=== PATIENT | male | born 1955 | race Caucasian/White ===

== ENCOUNTER → 2019-08-17 10:19 | Outpatient (BNVA) | payer OTHER, SELFPAY | PROVIDERS: Referring Provider Physician Assistant Medical; Visit Provider Orthopaedic Surgery | DX: M25.561 Pain in right knee (principal); M25.562 Pain in left knee | CPT/HCPCS: 73560; 73565 ==

== ENCOUNTER 2019-08-21 08:12 | Day surgery (SDC) | payer OTHER, SELFPAY ==
[2019-08-18 14:43] VITALS: BMI 27.5
[2019-08-21 08:37] VITALS: BP 139/91; PULSE 73; RESP 18; TEMP 36.2; O2SAT 95
[2019-08-21] MEDS: sodium chloride 0.9% 1,000 ML 30 ML IV (08:58)
--- NOTE | 2019-08-21 10:05 | ANES.PREANE2 ---
Pre-Anesthetic Assessment Pre-Anesthetic Assessment: Height/Weight: Height 1.91 m Weight 99.79 kg Temp Pulse Resp BP Pulse Ox 97.2 F L 73 18 139/91 95 08/21/19 08:37 08/21/19 08:37 08/21/19 08:37 08/21/19 08:37 08/21/19 08:37 Preop Diagnosis: Right medial meniscal tear Proposed Procedure: Operation Date: 08/21/19 10:30 Proposed Procedures p Right Knee Arthroscopy 45916 S83.206A(Right) - Andi Moise MD Last intake: Intake Last Liquid Date 08/20/19 Last Liquid Time 22:00 Last Solid Date 08/20/19 Last Solid Time 22:00 Exam: Pre-Anes Outpt Exam: alert, oriented x 3, clear to auscultation bilaterally and regular rate & rhythm Airway: Submandibular: WNL Cervical ROM: WNL MP: 1 Dentition: Caps Anesthetic Plan: ASA status: 2 Anesthesia: General Meds/Allergies Current Medications: Current Medications Generic Name Dose Route Start Last Admin Trade Name Freq PRN Reason Stop Dose Admin Sodium Chloride 1,000 mls @ 30 ml s/hr 08/21/19 08:45 08/21/19 08:58 Sodium Chloride 0.9% IV 08/22/19 08:44 30 mls/hr .Q24H MANDY Administration PFSH Anesthesia PFSH: Social History (Updated 08/17/19 @ 09:50 by Clovis Dodge LPN) Smoking and tobacco status: never smoked Alcohol intake: current Alcohol intake frequency: holidays/special occasions only Data Anesthesia Cardiac Studies: No Data to Display
--- NOTE | 2019-08-21 10:46 | W.PM.OPSUD ---
Surgery/Procedure H&P Update DATE OF PROCEDURE: August 21, 2019 DATE H&P PERFORMED: 08/17/19 H&P UPDATE INFORMATION: I have reviewed H&P completed within last 30 days and No changes to prior documentation PREOP DIAGNOSIS: Right medial meniscal tear PLANNED PROCEDURE: Operation Date: 08/21/19 10:30 Proposed Procedures p Right Knee Arthroscopy 64081 S83.206A(Right) - Andi Moise MD
[2019-08-21] MEDS: morphine 4 mg/mL SDV 1 mL 8 MG IM (11:10)
[2019-08-21 11:57] VITALS: BP 128/84; PULSE 78; RESP 16; TEMP 36.7; O2SAT 95
[2019-08-21 12:00] VITALS: BP 136/82; PULSE 81; RESP 20; O2SAT 98
--- NOTE | 2019-08-21 12:03 | PM.OP ---
Operative Report Date of procedure: August 21, 2019 Pre-op Diagnosis: Right medial meniscal tear Post-op diagnosis: other Post-op Diagnosis: Macerated tears right medial and lateral meniscus, chondromalacia right medial femoral condyle, loose body right knee Post-op Findings: As above Procedure Done: Arthroscopic partial right medial and lateral meniscectomy, chondroplasty right medial femoral condyle, removal loose body right knee Pathology: none sent Surgeon: Andi Moise Anesthesia: General Estimated blood loss (mL): 10 Tourniquet time (min): 0 Complications: None Findings: The patient had macerated tearing of his right medial meniscus with deficient tissue likely consistent with a previous meniscectomy. The remaining rim was fibrillated with unstable flaps. After debridement only perhaps 30% of the meniscus was left intact. He had unstable flaps and fissures over the weightbearing aspect the lateral femoral condyle with a small central area of exposed subchondral bone. A large loose body measuring approximately 14 x 8 mm with identified loose in the medial compartment. He had macerated tearing of the central 30% of the lateral meniscus Condition: stable Disposition: PACU Brief History: The patient is a 63-year-old male with a history of multiple knee arthroscopies including 2 anterior cruciate ligament reconstruction. He developed pain and mechanical symptoms in the medial compartment with an MRI suggesting meniscal tearing. Arthroscopy was chosen to address mechanical sources of pain in the knee Procedure: The patient was taken to the operating room and given a general anesthesia. He was prepped and draped in the supine position with a tourniquet on the right thigh. The knee was infiltrated with 30 cc of 0.5% Marcaine with epi and 10 mg of morphine. The knee was entered through standard inferior medial and inferior lateral portal. The diagnostic portion of the arthroscopy was performed. Initially the large loose body in the medial compartment was identified. Due to the size loose body. A scalpel was used to enlarge the medial portal. A grasper could then be placed into the medial joint and the large foreign body removed. A valgus force was then applied across the knee. Unstable fibrillated medial meniscus was debrided back with incisor shaver and [employer] Werewolf probe. This left approximately 30% of the meniscus behind. Unstable flaps and fissures were identified over the central medial femoral condyle. Utilizing incisor shaver these flaps and fissures were debrided back exposing a small central area of subchondral bone. The leg was then placed in a [id number] position allowing access to the tight lateral compartment. Unstable frayed and fibrillated meniscal tissue centrally was debrided back with an incisor shaver and [employer] Werewolf probe leaving approximately 70% of the meniscus remaining. The knee was irrigated with saline. Portals were closed with 3-0 Prolene. Dressings were applied. The patient was extubated and taken to recovery room in stable condition.
[2019-08-21 12:05] VITALS: BP 126/82; PULSE 79; RESP 15; TEMP 36.5; O2SAT 99
[2019-08-21 12:17] VITALS: BP 122/86; PULSE 68; RESP 17; TEMP 36.5; O2SAT 97
[2019-08-21 12:56] VITALS: BP 138/93; PULSE 72; RESP 18
== END 2019-08-21 13:15 | disposition home or self-care (01) ==
PROVIDERS: Orthopaedic Surgery; Visit Provider Orthopaedic Surgery
PROC: (CPT 29870; principal; 2019-08-21 10:30)
DX: S83.241A Other tear of medial meniscus, current injury, right knee, initial encounter (principal); S83.281A Other tear of lateral meniscus, current injury, right knee, initial encounter; X58.XXXA Exposure to other specified factors, initial encounter
CPT/HCPCS: 29880; 12345; J0131; J0690; J1100; J2270; J2405; J2704; J2765; J3010; J3490; J7030

== ENCOUNTER → 2021-06-04 10:34 | Outpatient (BNVA) | payer MEDICARE, SELFPAY | PROVIDERS: PCP Registered Nurse; Visit Provider Registered Nurse | DX: Z12.5 Encounter for screening for malignant neoplasm of prostate (principal); Z13.6 Encounter for screening for cardiovascular disorders; Z12.11 Encounter for screening for malignant neoplasm of colon; Z71.3 Dietary counseling and surveillance; Z71.82 Exercise counseling; Z23 Encounter for immunization | CPT/HCPCS: 80053; 80061; 85025; G0103 ==

== ENCOUNTER → 2021-06-23 15:12 | Outpatient (BNVA) | payer MEDICARE, SELFPAY | PROVIDERS: PCP Registered Nurse; Visit Provider Surgery | DX: Z01.812 Encounter for preprocedural laboratory examination (principal) | CPT/HCPCS: 87635 ==

== ENCOUNTER 2021-06-27 06:10 | Day surgery (SDC) | payer MEDICARE, SELFPAY ==
[2021-06-24 11:01] VITALS: BMI 25.9
--- NOTE | 2021-06-27 06:29 | W.PM.OPSFHP ---
Same Day Surgery H&P Indication for Procedure/HPI DATE OF PROCEDURE: June 27, 2021 CHIEF COMPLAINT/INDICATIONFOR SURGICAL PROCEDURE: Screening colonoscopy PREOP DIAGNOSIS: Screening colonoscopy PLANNED PROCEDURE: Operation Date: 06/27/21 07:00 Proposed Procedures p Colonoscopy 80152/z12.11(Not Applicable) - Chris Carlos MD This is a pleasant 65 years old gentleman presents to my practice for screening colonoscopy.Patient reports that he never had a colonoscopy before and no history of bleeding per rectum and no previous laparotomies or colon surgery. ROS All systems have been reviewed negative except as per the above or per problem list Medications/Allergies* Home Medications Medication Instructions Recorded Confirmed Type multivitamin 1 tab PO DAILY 08/17/19 06/24/21 History Allergies/Adverse Reactions Allergy/AdvReac Type Severity Reaction Status Date / Time No Known Allergies Allergy Verified 06/27/21 06:33 Pertinent History/Comorbid Conditions* Surgical History (Updated 08/17/19 @ 10:51 by Andi Moise MD) History of reconstruction of anterior cruciate ligament tear Family History (Updated 06/04/21 @ 09:26 by Edith Corado LPN) Cancer Father Social History Smoking and tobacco status: never smoked Alcohol intake: current Alcohol intake frequency: holidays/special occasions only Adopted: No Caregiver/support person: No Lives independently: No Household members: spouse Marital status: Sexually active: Yes Current gender identity: Male Pertinent Exam Findings alert, oriented x 3, clear to auscultation bilaterally and operative site marked (Abdominal examination nontender nondistended soft) Recommendations Surgery/Procedure today (Colonoscopy with possible biopsy) Other Plans: Plan of care; After thorough history and physical examination and reviewing the chart, plan to perform screening colonoscopy. I discussed with the patient in details the risks,benefits,alternatives and indications.The risk of aspiration, bleeding, soft tissue injury, perforation of the colon and other potential concomitant complications were explained to the patient in details,also the potential need for Laproscoy/Laparotomy to repair any related complications including but not limited to colectomy and or Closotomy.The patient understood this well and did agree to proceed. Rationale was carefully and clearly discussed with the patient.Appropriate informed consent have been reviewed and signed All questions have been answered and all concerns have been addressed to patient's satisfaction. Verbal and written Instructions were given to the patient for colonoscopy prep. Patient was educated during this clinical encounter that screening colonoscopy starts at age of 45 for men and women at average risk Coding Level of Care Code Acute Control Operator for Dinorah Hamilton
[2021-06-27 06:34] VITALS: BP 148/91; PULSE 70; RESP 18; TEMP 36.3; O2SAT 97
[2021-06-27] MEDS: sodium chloride 0.9% 1,000 ML 30 ML IV (06:36)
--- NOTE | 2021-06-27 06:41 | ANES.PREANE2 ---
Pre-Anesthetic Assessment Pre-Anesthetic Assessment: Height/Weight: Height 1.91 m Weight 94.347 kg Temp Pulse Resp BP Pulse Ox 97.4 F L 70 18 148/91 97 06/27/21 06:34 06/27/21 06:34 06/27/21 06:34 06/27/21 06:34 06/27/21 06:34 Preop Diagnosis: Screening colonoscopy Proposed Procedure: Operation Date: 06/27/21 07:00 Proposed Procedures p Colonoscopy 66577/z12.11(Not Applicable) - Chris Carlos MD Was Beta Christiana taken within 24 hours: N/A Was Clonidine taken within 24 hours: N/A Last intake: Intake Last Liquid Date 06/26/21 Last Liquid Time 22:00 Last Solid Date 06/25/21 Last Solid Time 22:00 Social: Social History: No alcohol and No tobacco Exam: Pre-Anes Outpt Exam: alert, oriented x 3 and clear to auscultation bilaterally Airway: Submandibular: WNL Cervical ROM: WNL MP: 2 Dentition: Full History/ROS: No significant history except as noted and No significant complaints Pulmonary: Pulmonary: None reported CV/HEM: CV/HEM: None reported : : UTI Hepatic: Hepatic: None reported GI: GI: None reported Metabolic: Metabolic: None reported Musc/skel: Musc/skel: None reported Neuropsych: Neuropsych: None reported Anesthetic Plan: ASA status: 1 Risk of > 500 ml blood loss (7ml/kg in children): No Medications/Allergies Current Medications: Current Medications Generic Name Dose Route Start Last Admin Trade Name Freq PRN Reason Stop Dose Admin Sodium Chloride 1,000 mls @ 30 ml s/hr 06/27/21 06:45 06/27/21 06:36 Sodium Chloride 0.9% IV 30 mls/hr .Q24H MANDY Administration PFSH Anesthesia PFSH: Surgical History History of reconstruction of anterior cruciate ligament tear Family History (Updated 06/04/21 @ 09:26 by Edith Corado LPN) Father Cancer Social History (Updated 06/04/21 @ 09:22 by Edith Corado LPN) Smoking and tobacco status: never smoked Alcohol intake: current Alcohol intake frequency: holidays/special occasions only Adopted: No Caregiver/support person: No Lives independently: No Household members: spouse Marital status: Sexually active: Yes Current gender identity: Male Data Anesthesia Cardiac Studies: No Data to Display
[2021-06-27 07:14] VITALS: BP 126/83; PULSE 84; RESP 16; TEMP 36.1; O2SAT 93
[2021-06-27 07:27] VITALS: BP 135/77; PULSE 80; RESP 18; O2SAT 93
--- NOTE | 2021-06-27 14:29 | ANE.PACU2 ---
Inpatient post-anesthesia follow up: Airway intact: Yes Vital signs: Temperature 97.0 F Pulse Rate 80 Respiratory Rate 18 Blood Pressure 135/77 Pulse Oximetry 93 Oxygen Delivery Me thod Nasal Cannula Oxygen Flow Rate 2.5 Fraction of Inspir ed Oxygen Hydration adequate: Yes Nausea and vomiting: No Pain level: 1 Mental status: Baseline
== END 2021-06-27 07:47 | disposition home or self-care (01) ==
PROVIDERS: PCP Registered Nurse; Visit Provider Surgery
PROC: 0DJD8ZZ Inspection of Lower Intestinal Tract, Via Natural or Artificial Opening Endoscopic (ICD-10-PCS; CPT 45378; principal; 2021-06-27 07:00)
DX: Z12.11 Encounter for screening for malignant neoplasm of colon (principal); K62.1 Rectal polyp
CPT/HCPCS: 45385; 88305; J2704; J7030

== ENCOUNTER → 2022-06-11 10:09 | Outpatient (BNVA) | payer MEDICARE, SELFPAY | PROVIDERS: PCP Registered Nurse; Visit Provider Registered Nurse | DX: Z13.6 Encounter for screening for cardiovascular disorders (principal); Z12.5 Encounter for screening for malignant neoplasm of prostate; Z23 Encounter for immunization; Z00.00 Encounter for general adult medical examination without abnormal findings; Z71.3 Dietary counseling and surveillance; Z71.85 Encounter for immunization safety counseling | CPT/HCPCS: 80053; 80061; 85025; G0103 ==

== ENCOUNTER → 2022-06-15 08:21 | Outpatient (BNVA) | payer MEDICARE, SELFPAY | PROVIDERS: PCP Registered Nurse; Visit Provider Registered Nurse | DX: D70.9 Neutropenia, unspecified (principal) | CPT/HCPCS: 85007; 85027 ==